=== PATIENT | female | born 2000 | race Caucasian/White ===

== ENCOUNTER 2019-03-28 15:55 | Emergency (ER) | payer OTHER ==
[2019-03-28] MEDS ORDERED: METOCLOPRAMIDE HCL ORAL SOLN 10 MG/10 ML UDCUP PO ONE (17:05)
[2019-03-28] MEDS ORDERED: MAG HYDROX/AL HYDROX/SIMETH SUSP 30 ML UDCUP PO ONE (17:05)
[2019-03-28] MEDS ORDERED: LIDOCAINE 2% VISCOUS SOLN 15 ML UDCUP PO ONE (17:05)
--- NOTE | 2019-03-28 17:07 | ER Document Report ---
ED Medical Screen (RME) - General Chief Complaint: Abdominal Pain Stated Complaint: ABDOMINAL PAIN, NAUSEA Time Seen by Provider: 03/28/19 17:01 Notes: Patient is a 18-year-old female presents emergency department with a chief complaint of abdominal pain. Patient reports 2 days ago she had 3 episodes of periumbilical cramping that radiated up into the epigastric area. Patient reports she is also having acid reflux type symptoms. Patient reports over the past few days the symptoms persisted. She said nothing exacerbated her symptoms. Denies abdominal surgery. Patient reports nausea and 1 episode of diarrhea this morning. Denies vomiting. Denies fever. Denies vaginal bleeding or discharge. Denies urinary symptoms. Patient reports her last menstrual cycle was 10 days ago. Patient reports that she does have irregular menstrual cycles. TRAVEL OUTSIDE OF THE [place] IN LAST 30 DAYS: No - Related Data Allergies/Adverse Reactions: No Known Allergies Allergy (Unverified 03/28/19 17:05) Home Medications: denies Past Medical History - Social History Chew tobacco use (# tins/day): No Frequency of alcohol use: None Drug Abuse: None Physical Exam - Vital signs Vitals: Temp Pulse Resp BP Pulse Ox 98.6 F 101 H 18 131/75 H 97 03/28/19 16:00 03/28/19 16:00 03/28/19 16:00 03/28/19 16:00 03/28/19 16:00 Course - Re-evaluation Re-evalutation: 03/28/19 17:07 Patient has very mild epigastric pain with palpation. Abdomen is soft. Active bowel sounds x4. Will give a GI cocktail and obtain basic labs. Will also check a urine hCG. I have greeted and performed a rapid initial assessment of this patient. A comprehensive ED assessment and evaluation of the patient, analysis of test results and completion of the medical decision making process will be conducted by additional ED providers. - Vital Signs Vital signs: Temp Pulse Resp BP Pulse Ox 98.6 F 101 H 18 131/75 H 97 03/28/19 16:00 03/28/19 16:00 03/28/19 16:00 03/28/19 16:00 03/28/19 16:00
[2019-03-28 17:57] LABS: ABSOLUTE EOSINOPHILS # (AUTO) 0.3 10^3/uL (0.0-0.6); ABSOLUTE NEUT (AUTO) 7.2 10^3/uL (1.7-8.2); BASOPHILS % (AUTO) 0.4 % (0-2); EOSINOPHILS % (AUTO) 2.5 % (0-6); HEMATOCRIT 42.7 % (36.0-47.0); HEMOGLOBIN 14.7 g/dL (12.0-15.5); LYMPHOCYTES % (AUTO) 26.1 % (13-45); MEAN CORPUSCULAR HEMOGLOBIN 29.2 pg (27.0-33.4); MEAN CORPUSCULAR HGB CONC 34.5 g/dL (32.0-36.0); MEAN CORPUSCULAR VOLUME 85 fl (80-97); MONOCYTES % (AUTO) 8.3 % (3-13); PLATELET COUNT 422 10^3/uL (150-450); RED BLOOD COUNT 5.04 10^6/uL (3.72-5.28); RED CELL DISTRIBUTION WIDTH 14.1 % (11.5-14.0); SEGMENTED NEUTROPHILS % (AUTO) 62.7 % (42-78); TOTAL CELLS COUNTED % (AUTO) 100 %; WHITE BLOOD COUNT 11.4 10^3/uL (4.0-10.5)
[2019-03-28 17:59] LABS: APPEARANCE,URINE SLIGHTLY-CLOUDY; BILIRUBIN,URINE NEGATIVE (NEGATIVE); COLOR,URINE YELLOW; GLUCOSE, URINE NEGATIVE (NEGATIVE); KETONES,URINE NEGATIVE (NEGATIVE); LEUKOCYTE ESTERASE,URINE NEGATIVE (NEGATIVE); NITRITE,URINE NEGATIVE (NEGATIVE); PROTEIN,URINE NEGATIVE (NEGATIVE); URINE SPECIFIC GRAVITY 1.018; UROBILINOGEN,URINE NEGATIVE mg/dL (<2.0)
[2019-03-28 18:13] LABS: ALBUMIN 5.1 g/dL (3.5-5.0); ALKALINE PHOSPHATASE 66 U/L (38-126); ANION GAP 17 (5-19); ASPARTATE AMINO TRANSFERASE 38 U/L (14-36); BILIRUBIN,DIRECT 0.3 mg/dL (0.0-0.4); BILIRUBIN,TOTAL 0.4 mg/dL (0.2-1.3); BLOOD UREA NITROGEN 12 mg/dL (7-20); CALCIUM 10.5 mg/dL (8.4-10.2); CARBON DIOXIDE 25 mmol/L (22-30); CHLORIDE 98 mmol/L (98-107); GLUCOSE 88 mg/dL (75-110); POTASSIUM 4.4 mmol/L (3.6-5.0); TOTAL PROTEIN 8.5 g/dL (6.3-8.2)
[2019-03-28 20:53] VITALS: BP 115/61
== END 2019-03-28 20:59 | disposition home or self-care (01) ==
LOC: ER 15:55
DX: R10.33 Periumbilical pain (principal); R10.13 Epigastric pain; R11.0 Nausea; R19.7 Diarrhea, unspecified
CPT/HCPCS: 36415; 83690; 85025; 81025; 80053; 81001; J3490; 99284

== ENCOUNTER → 2019-05-09 | Outpatient (CLI) | payer OTHER ==
--- NOTE | 2019-05-09 16:33 | RADIOLOGY REPORT (SQ) ---
EXAM DESCRIPTION: U/S NON-OB PELVIS TV W/O DOP IMAGES COMPLETED DATE/TIME: 05/09/2019 4:19 pm REASON FOR STUDY: R10.2 PELVIC AND PERINEAL PAIN R10.2 PELVIC AND PERINEAL PAIN COMPARISON: None. TECHNIQUE: Dynamic and static grayscale images acquired of the pelvis via transvaginal approach and recorded on PACS. Additional selected color Doppler and spectral images recorded. LIMITATIONS: None. FINDINGS: UTERUS: Contour normal. No mass. ENDOMETRIAL STRIPE: No focal or generalized thickening. No masses. CERVIX: No nabothian cysts. RIGHT OVARY AND DOPPLER: Normal size. No worrisome masses. Normal arterial vascular flow without evid ence for torsion. LEFT OVARY AND DOPPLER: Normal size. No worrisome masses. Normal arterial vascular flow without evide nce for torsion. FREE FLUID: None noted. OTHER: No other significant finding. MEASUREMENTS: UTERUS: 6.2 x 3.2 x 4.1 cm. ENDOMETRIAL STRIPE: 9.0 mm. RIGHT OVARY: 3.9 x 2.2 x 3.0 cm. LEFT OVARY: 4.5 x 3.1 x 3.1 cm. IMPRESSION: NORMAL TRANSVAGINAL PELVIC ULTRASOUND. TECHNICAL DOCUMENTATION: JOB ID: [id number] 2010 [employer]- All Rights Reserved Rev-06/25 Reading location - IP/workstation name: [email or web address]
== END ==
LOC: RAD 15:40
PROVIDERS: ATTEND Nurse Practitioner Family
DX: R10.2 Pelvic and perineal pain (principal)
CPT/HCPCS: 76830

== ENCOUNTER 2019-10-24 13:50 | Emergency (ER) | payer OTHER ==
--- NOTE | 2019-10-24 14:23 | ER Document Report ---
ED Medical Screen (RME) - General Chief Complaint: Syncope Stated Complaint: ARM NUMBNESS/POSSIBLE SYNCOPE Time Seen by Provider: 10/24/19 14:21 Primary Care Provider: DENIS HERMOSILLO NP [Primary Care Provider] - Follow up as needed Notes: Patient is a 19-year-old female who presents emergency department with a syncopal episode that happened a few days ago. Patient was in [facility] and ended up "passing out." Exam: Patient appears anxious. Patient states that she does not want to have blood work done. I ordered blood work and explained to her that her work-up would not be complete without blood work. Will order hCG, EKG, and urinalysis at this time. I have greeted and performed a rapid initial assessment of this patient. A comprehensive ED assessment and evaluation of the patient, analysis of test results and completion of medical decision making process will be conducted by an additional ED providers. TRAVEL OUTSIDE OF THE [place] IN LAST 30 DAYS: No - Related Data Allergies/Adverse Reactions: No Known Allergies Allergy (Verified 10/24/19 14:09) Home Medications: control. metformin. pcos Past Medical History - Social History Chew tobacco use (# tins/day): No Frequency of alcohol use: None Drug Abuse: None Psychiatric Medical History: Reports: Hx Depression - anxiety Physical Exam - Vital signs Vitals: Temp Pulse Resp BP Pulse Ox 99.1 F 98 18 134/72 H 99 10/24/19 13:59 10/24/19 13:59 10/24/19 13:59 10/24/19 13:59 10/24/19 13:59 Course - Vital Signs Vital signs: Temp Pulse Resp BP Pulse Ox 99.1 F 98 18 134/72 H 99 10/24/19 13:59 10/24/19 13:59 10/24/19 13:59 10/24/19 13:59 10/24/19 13:59 Doctor's Discharge - Discharge Referrals: DENIS HERMOSILLO NP [Primary Care Provider] - Follow up as needed
--- NOTE | 2019-10-24 15:00 | ER Document Report ---
ED Syncope and Near Syncope - General Chief Complaint: Syncope Stated Complaint: ARM NUMBNESS/POSSIBLE SYNCOPE Time Seen by Provider: 10/24/19 14:21 Primary Care Provider: DENIS HERMOSILLO NP [Primary Care Provider] - Follow up in 3-5 days Notes: Patient is a 19-year-old female who presents the emergency department with a syncopal episode that happened a few days ago. Patient does not remember much of what happened during the incident. is at bedside and states that she has not "passed out" since then. Patient has a history of anxiety. Patient also reports that she has had some sinus pressure for the past few months. She is currently on Flonase. States that it "does not really help her very much." Denies any fever, body aches, or chills. Patient works as a nursing center tutor, but has been tested for COVID-19 in her test a few days ago was negative. TRAVEL OUTSIDE OF THE [place] IN LAST 30 DAYS: No - Related Data Allergies/Adverse Reactions: No Known Allergies Allergy (Verified 10/24/19 14:09) Home Medications: control. metformin. pcos Past Medical History - General Information source: Patient, Relative - - Social History Smoking Status: Never Smoker Chew tobacco use (# tins/day): No Frequency of alcohol use: None Drug Abuse: None Family History: Reviewed & Not Pertinent Patient has homicidal ideation: No Psychiatric Medical History: Reports: Hx Depression - anxiety Review of Systems - Review of Systems Notes: REVIEW OF SYSTEMS: CONSTITUTIONAL : Denies recent illness. Denies recent unintentional weight loss. Denies fever, chills, or sweats. EENT: Denies eye, ear, throat, or mouth pain, discharge, or symptoms. See HPI. CARDIOVASCULAR: Denies chest pain. RESPIRATORY: Denies shortness of breath, cough, congestion, difficulty breathing, or wheezing. GASTROINTESTINAL: Denies nausea, vomiting, and diarrhea. Denies abdominal pain. Denies constipation. GENITOURINARY: Denies difficulty urinating, burning, blood in urine, urgency or frequency. MUSCULOSKELETAL: Denies neck and back pain. Denies joint pain or swelling. SKIN: Denies rash, itchiness, or lesions HEMATOLOGIC : Denies easy bruising or bleeding. LYMPHATIC: Denies swollen, painful, enlarged glands. NEUROLOGICAL: Denies no numbness or tingling denies weakness. Denies altered mental status. Denies alteration in speech. PSYCHIATRIC: Denies stress, anxiety, alteration in sleep patterns, or depression. All other systems reviewed and negative. Physical Exam - Vital signs Vitals: Temp Pulse Resp BP Pulse Ox 99.1 F 98 18 134/72 H 99 10/24/19 13:59 10/24/19 13:59 10/24/19 13:59 10/24/19 13:59 10/24/19 13:59 - Notes Notes: PHYSICAL EXAMINATION: GENERAL: Appears well, healthy, well-nourished, no acute distress. HEAD: Normocephalic, atraumatic. Tenderness noted to the left maxillary sinus and left frontal sinus. EYES: PERRL, conjunctiva normal, all extraocular movements intact, sclera nonicteric ENT: Moist mucous membranes. NECK: Supple, no noticeable swelling, redness, rash. Normal range of motion. LUNGS: Equal breath sounds bilaterally and clear to auscultation. No wheezes rales or rhonchi. CARDIOVASCULAR: S1-S2, regular rate, regular rhythm. Radial pulses 2+, normal. ABDOMEN: Normoactive bowel sounds. Soft, nontender, no guarding, no rebound tenderness, and no masses palpated. EXTREMITIES: Normal strength and range of motion, no pitting or edema. No cyanosis. NEUROLOGICAL: Moves all extremities upon command. Strength 5/5 in all extremities. PSYCH: Normal mood, normal affect. SKIN: Warm, dry. No rash, lesions, ulcerations noted. Normal skin turgor. Course - Re-evaluation Re-evalutation: 10/24/19 16:43 Urinalysis is unremarkable, other than a small amount of blood noted in her urine. Patient does have tenderness to her left maxillary and left frontal sinus. She states that she has had this for about a month. Based off the patient's syncopal episode and sinus pressure, will start the patient on Augmentin. Patient refused the labs, although she had labs drawn back in March. Patient states that she absolutely refuses to have her blood drawn, because of her traumatic experience from getting labs drawn before. Informed her that her workup would not be complete. Verbalizes understanding. She will follow-up with her primary care provider. I have low suspicion for any life- threatening etiology at this time. Normal strength in all extremities. Follow- up precautions were given. Verbal discharge instructions were given to the patient. They verbalized understanding. They are stable for discharge. - Vital Signs Vital signs: Temp Pulse Resp BP Pulse Ox 98.5 F 99 20 119/72 98 10/24/19 17:01 10/24/19 17:01 10/24/19 17:01 10/24/19 17:01 10/24/19 17:01 - Laboratory Laboratory results interpreted by me: 10/24/19 15:00 Urine Blood SMALL H - EKG Interpretation by Me Additional EKG results interpreted by me: 10/24/19 16:42 Sinus rhythm. Rate 87. AL 160; QRS 78; QT 340; QTc 409. No ST elevations or depressions noted. Slight variation in lead V1 due to patient's respirations. Discharge - Discharge Clinical Impression: Acute sinusitis Qualifiers: Sinusitis location: pansinusitis Recurrence: not specified as recurrent Qualified Code(s): J01.40 - Acute pansinusitis, unspecified Syncope Qualifiers: Syncope type: unspecified Qualified Code(s): R55 - Syncope and collapse Condition: Stable Disposition: HOME, SELF-CARE Additional Instructions: Sinusitis You have sinusitis, an infection of the sinus cavities of the face. The sinuses are air-filled chambers which open into the inside of the nose. Bacteria and pus fill a sinus, causing pain, drainage, and fever. Sinusitis is treated with antibiotics. Often, expectorants (to thin the sinus mucous) or decongestants (to reduce swelling) are prescribed as well. Healing requires seven to 10 days. Avoid chemical fumes, pollens, dusts, and smoke (especially cigarette smoke). Keep the air humidified in your bedroom and work area and take plenty of liquids by mouth. This condition can be serious if the infection spreads. If your symptoms worsen, or if you develop severe headache, high fever, stiff neck, or a rash, you must call the doctor or return for re-evaluation. Your syncopal episode is most likely due to your sinus infection. Please take it easy for the next few days. Follow-up with your primary care provider in regards to this visit. Prescriptions: Amoxicillin/Potassium Clav [Augmentin 875-125 Tablet] 1 tab PO BID #20 tab Forms: Return to Work Referrals: WITTLER,DENIS, [employer] [Primary Care Provider] - Follow up in 3-5 days
[2019-10-24 16:11] LABS: APPEARANCE,URINE SLIGHTLY-CLOUDY; BILIRUBIN,URINE NEGATIVE (NEGATIVE); COLOR,URINE YELLOW; GLUCOSE, URINE NEGATIVE (NEGATIVE); KETONES,URINE NEGATIVE (NEGATIVE); PROTEIN,URINE NEGATIVE (NEGATIVE); URINE SPECIFIC GRAVITY 1.017; UROBILINOGEN,URINE NEGATIVE mg/dL (<2.0)
[2019-10-24 17:01] VITALS: BP 119/72
--- NOTE | 2019-10-25 00:56 | EKG REPORT ---
SEVERITY:- NORMAL ECG - SINUS RHYTHM : Confirmed by: Abdoulaye Vanegas 25-Oct-2019 00:55:50
== END 2019-10-24 17:02 | disposition home or self-care (01) ==
LOC: ER 13:50
DX: J01.40 Acute pansinusitis, unspecified (principal); R55 Syncope and collapse; R20.0 Anesthesia of skin; Z79.3 Long term (current) use of hormonal contraceptives; Z79.84 Long term (current) use of oral hypoglycemic drugs
CPT/HCPCS: 81001; 81025; 87086; 93005; 93010; 99284